=== PATIENT | female | born 1995 | race Caucasian/White ===

== ENCOUNTER 2017-07-25 15:32 | Emergency (ER) | payer OTHER ==
[~2017-07-25] VITALS: Ht 165.1 cm; Wt 68.2 kg
[2017-07-25] MEDS ORDERED: SERT50TA12 PO (15:38)
[2017-07-25 16:25] VITALS: BP 97/64
[2017-07-25] MEDS ORDERED: LIDOCAINE HCL 1% 10 ML VIAL INJ ONE (17:30)
== END 2017-07-25 18:14 | disposition home or self-care (01) ==
LOC: EMS 15:34
DX: S01.01XA Laceration without foreign body of scalp, initial encounter (principal); S93.401A Sprain of unspecified ligament of right ankle, initial encounter; W01.198A Fall on same level from slipping, tripping and stumbling with subsequent striking against other object, initial encounter; Y93.89 Activity, other specified; Y92.89 Other specified places as the place of occurrence of the external cause; Y99.8 Other external cause status
CPT/HCPCS: 12002; 73610; 99284; J3490